=== PATIENT | female | born 1990 | race Caucasian/White ===

== ENCOUNTER 2022-02-05 09:52 | Emergency (ER) | payer OTHER ==
[~2022-02-05] VITALS: Ht 162.6 cm; Wt 77.1 kg
[2022-02-05] MEDS ORDERED: DICLOFENAC SODI75 MG PO (17:13)
== END 2022-02-05 19:21 | disposition home or self-care (01) ==
LOC: ER 09:52
DX: M94.0 Chondrocostal junction syndrome [Tietze] (principal)